=== PATIENT | female | born 1995 | race Caucasian/White ===

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

== ENCOUNTER 2017-04-11 20:59 | Emergency (ER) | payer BC ==
--- NOTE | 2017-04-11 21:35 | EDPHY ---
General - History Smoking Status: Never smoked Narrative: The patient was evaluated and managed by the physician life science research assistant. I have reviewed this chart and I agree with the findings and plan of care as documented , as indicated by my signature. I am the secondary supervising physician. ( Ivy Mcdonnell) CHIEF COMPLAINT: labia pain HISTORY OF PRESENT ILLNESS: Patient presents with complaints of 2 days history of pain, itching and discomfort of her vulva. She has no abdominal pain no pelvic pain. No vaginal pain no bleeding or discharge. She reports having frequent intercourse with her boyfriend over the weekend after having not seen him for a long period of time. She has no nausea or vomiting. No upper abdominal pain. No trauma or injury. She reports tenderness to took to the labia. No bleeding. No laceration. No unwanted sexual contact. No other associated complaints or modifying factors. REVIEW OF SYSTEMS: Ten systems reviewed and are negative unless otherwise noted in the HPI PCP: None SPECIALISTS: Reel Cutter Dr. Lindsay PAST MEDICAL HISTORY: Uncomplicated PAST SURGICAL HISTORY: None SOCIAL HISTORY: Nonsmoker. [employer] student. FAMILY HISTORY: Noncontributory EXAMINATION General Appearance: Alert, no distress Head: normocephalic, atraumatic Eyes: Pupils equal and round, no conjunctival pallor or injection ENT, Mouth: Mucous membranes moist Neck: Normal inspection, supple, non-tender Respiratory: No retractions or distress Cardiovascular: Regular rate. Excellent signs of perfusion Gastrointestinal: Abdomen is soft and nontender. No tympany rigidity. No distention. No guarding. Benign abdominal examination : Female RN braided band assembler (Sindy). No drainage or lesions. Mild white discharge inferiorly. There is mild erythema and swelling of the labia majora inferiorly. Consistent with labial hematoma. No bleeding. No laceration. Speculum exam deferred. Neurological: A&O, nonfocal, normal gait Skin: Warm and dry, no rash. No petechiae or purpura Extremities: Nontender, no pedal edema Psychiatric: Mood and affect normal DIFFERENTIAL DIAGNOSES: Including but not limited to labial hematoma, vulvar hematoma, contusion, STI MDM: 9:35 p.m. Repeated intercourse with labial pain. She has no abdominal pain. No pelvic pain. Her abdominal exam is benign. She reports a recent gynecologic evaluation with full pelvic exam last week with Dr. Lindsay. She was tested for sexually transmitted infection these were negative. I do not feel she warrants a full pelvic exam but I will perform a vulvar exam with female braided band assembler. I have ordered urine samples. 9:50 a.m. Vulvar examination reveals edematous labia majora without laceration, signs of trauma. There is mild white discharge that suggest the possibility of bacterial vaginosis. This test is pending at this time. 10:05 p.m. Urine HCG is negative. The initial urinalysis seems to have been run on the dirty urine sample as there is clearly contaminant. Patient drinking water to provide a 2nd sample. 10:45 p.m. Patient has provided a 2nd urine sample. This has been dipped in the emergency department with no evidence of urinary tract infection. I have ordered a urine culture. I have ordered Flagyl 500 mg for the pending bacterial vaginosis test. The patient does not want to wait in the department for the results, nor do I feel she needs to. This may be a lengthy wait. She will be contacted in the morning if this is a positive result or she will contact us to find out the results of the test. She has benign abdominal examination. She is afebrile with no flank pain or urinary complaints. We discussed care for the possible labial hematoma. We discussed pelvic rest. We discussed follow up with her established supervisor soakers Dr. Cartwright. She is discharged home in stable condition. Addendum 12:00 a.m. on , April 14. I am reviewing the patient's chart in her dirty urine sample came back positive for Desirae. She has not yet been contacted for this. I have discussed with the charge nurse. We will contact her to prescribe Diflucan 150 mg. SUPERVISION: Patient was independently examined, but I discussed the case with my secondary supervising physician Dr. Mcdonnell ([facility]) - Objective Vital Signs: Initial Vital Signs Temperature (C) 97.9 F 04/11/17 21:20 Heart Rate 67 04/11/17 21:20 Respiratory Rate 16 04/11/17 21:20 Blood Pressure 124/71 H 04/11/17 21:20 O2 Sat (%) 98 04/11/17 21:20 O2 Delivery Mode Room Air Allergies/Adverse Reactions: No Known Allergies Allergy (Unverified 04/11/17 21:17) Home Medications: Medication Instructions Recorded Sprintec 28 Day Tablet 11/15/16 metroNIDAZOLE [Flagyl 500 mg (*)] 500 mg PO TID #20 tab 04/11/17 Medications Given: Discontinued Medications Metronidazole (Flagyl) 500 mg PO EDNOW ONE PRN Reason: Protocol Stop: 04/11/17 22:41 Last Admin: 04/11/17 22:54 Dose: 500 mg Departure - Departure Disposition: Home, Routine, Self-Care Clinical Impression: Hematoma of labia majora, Vulvar pruritus Condition: Good Instructions: Metronidazole (By mouth), Vaginitis (ED), Hematoma (ED) Additional Instructions: 1. Ice applied frequently as discussed 2. Contact the emergency department in the morning for the results of the bacterial vaginosis test 3. Pelvic rest for 1 week 4. Follow up with her established supervisor soakers Referrals: Mervat Cartwright MD [Medical Doctor] - As per Instructions Prescriptions: metroNIDAZOLE [Flagyl 500 mg (*)] 500 mg PO TID #20 tab
[2017-04-11] MEDS ORDERED: metroNIDAZOLE 500 MG TAB PO ONE (22:40)
[2017-04-11 22:57] VITALS: BP 125/78; PULSE 65; RESP 18; TEMP 98.2; O2SAT 97
[2017-04-12 14:26] LABS: GC AMPLIFICATION GENPROBE NEGATIVE (NEGATIVE)
== END 2017-04-11 22:59 | disposition home or self-care (01) ==
DX: L29.2 Pruritus vulvae (principal); S30.23XA Contusion of vagina and vulva, initial encounter; X58.XXXA Exposure to other specified factors, initial encounter